=== PATIENT | male | born 1935 | race Caucasian/White ===

== ENCOUNTER → 2017-05-05 | Outpatient (CLI) | payer MEDICARE, OTHER ==
[~2017-05-05] MED LIST: CEPH-368 PO; ENAL5TAB PO; HYDR-3307 PO; METH750T87 PO; No meds per pt.; PRED1DRO EACHEYE
[2017-05-05 10:50] LABS: HEMATOCRIT 51.1 % (39.2-51.8); WHITE BLOOD COUNT 7.7 x10^3/uL (3.4-10)
[2017-05-05 11:02] LABS: ASPARTATE AMINO TRANSFERASE 18 U/L (15-37); BLOOD UREA NITROGEN 22 mg/dL (7-18)
== END | disposition home or self-care (01) ==
LOC: STAR 09:50
PROVIDERS: ATTEND Orthopaedic Surgery Orthopaedic Surgery of the Spine
DX: Z01.818 Encounter for other preprocedural examination (principal); R94.31 Abnormal electrocardiogram [ECG] [EKG]; R79.1 Abnormal coagulation profile
CPT/HCPCS: 36415; 71020; 80053; 81001; 85025; 85610; 85730; 93005

== ENCOUNTER 2017-05-21 07:57 | Day surgery (SDC) | payer MEDICARE, OTHER ==
[~2017-05-21] VITALS: Ht 182.9 cm; Wt 104.3 kg
[~2017-05-21 07:57] MED LIST changes: +BUPIVACAINE/PF 0.25% ONE; +EPINEPHRINE 1 MG/ML, 1ML ONE; +LIDOCAINE/PF 0.5% ,50ML ONE; +THROMBIN 5,000 UNIT VIAL TP ONE; +VANCOMYCIN 1,000 MG ONE
[2017-05-21 08:19] VITALS: BP 148/88
[2017-05-21] MEDS ORDERED: LACTATED RINGERS 1,000 ML IV SCH (08:22)
[2017-05-21] MEDS ORDERED: TYLENOL PO (08:24)
[2017-05-21] MEDS ORDERED: ENALAPRIL PO (08:24)
[2017-05-21] MEDS ORDERED: FENTANYL PF 250 MCG/5ML ONE (08:56)
[2017-05-21] MEDS ORDERED: PROPOFOL 10 MG/ML, 20ML ONE (08:57)
[2017-05-21] MEDS ORDERED: ROCURONIUM 10 MG/ML,10ML ONE (08:57)
[2017-05-21] MEDS ORDERED: SODIUM CHLORIDE 0.9% PF 10ML ONE (08:58)
[2017-05-21] MEDS ORDERED: CEFAZOLIN 1,000 MG ONE ×2 (08:58)
[2017-05-21] MEDS ORDERED: NEOSTIGMINE 1 MG/ML, 10ML ONE ×2 (09:00→10:22)
[2017-05-21] MEDS ORDERED: GLYCOPYRROLATE 0.2MG/1ML, 5ML ONE (10:22)
[2017-05-21] MEDS ORDERED: PROMETHAZINE 25 MG/ML, 1ML IV PRN (10:30)
[2017-05-21] MEDS ORDERED: OXYcodone 5 MG/5 ML ORAL.SOL UDC PO PRN (10:30)
[2017-05-21] MEDS ORDERED: HYDROmorphone 1 MG/ML, 1ML IV PRN (10:30)
[2017-05-21] MEDS ORDERED: hydrALAzine 20 MG/ML, 1ML IV PRN (10:30)
[2017-05-21] MEDS ORDERED: ACETAMINOPHEN 325 MG TABLET PO PRN (10:30)
[2017-05-21] MEDS ORDERED: MEPERIDINE/PF 25MG/0.5ML IVPush PRN (10:30)
[2017-05-21] MEDS ORDERED: LABETALOL 5MG/ML, 20ML IV PRN (10:30)
[2017-05-21] MEDS ORDERED: ONDANSETRON 2MG/ML, 2ML IVPush PRN (10:30)
[2017-05-21] MEDS ORDERED: FENTANYL PF 100 MCG/2ML IV PRN (10:30)
[2017-05-21] MEDS ORDERED: BUPIVACAINE/PF 0.25% ONE (10:57)
[2017-05-21] MEDS ORDERED: PHENYLEPHRINE 10 MG/ML ONE (11:26)
[2017-05-21] MEDS ORDERED: BUPIVACAINE/PF-EPI 0.25% 1:200K INFIL ONE (11:45)
[2017-05-21] MEDS ORDERED: BUPIVACAINE/PF 0.25% INFIL ONE (11:45)
[2017-05-21] MEDS ORDERED: EPINEPHRINE 1 MG/ML, 1ML INFIL ONE (11:47)
[2017-05-21] MEDS ORDERED: OXYcodone 5 MG/5 ML ORAL.SOL UDC ONE (12:58)
[2017-05-21] MEDS ORDERED: ACETAMINOPHEN 325 MG TABLET ONE (12:58)
[2017-05-21] MEDS ORDERED: ACETAMINOPHEN 650 MG/20.3 ML UDC ONE (12:59)
[2017-05-21] MEDS ORDERED: HYDROcodone/APAP 10/325 MG TABLET PO PRN (14:30)
== END 2017-05-21 16:35 ==
LOC: OUT 07:57
PROVIDERS: ATTEND Orthopaedic Surgery Orthopaedic Surgery of the Spine
DX: M51.26 Other intervertebral disc displacement, lumbar region (principal); E78.5 Hyperlipidemia, unspecified; I10 Essential (primary) hypertension
CPT/HCPCS: 63030; 72100; J0171; J0690; J2001; J2370; J2704; J2710; J3010; J3370; J3490; J7120